=== PATIENT | male | born 1950 | race Caucasian/White ===

== ENCOUNTER 2018-03-21 01:24 | Emergency (ER) | payer OTHER, MEDICAID ==
[~2018-03-21] VITALS: Ht 180.3 cm; Wt 50.0 kg
[2018-03-21 01:48] VITALS: BP 135/77; PULSE 73; RESP 16; TEMP 97.6; O2SAT 96
[2018-03-21] MEDS ORDERED: GABA600T PO (02:25)
--- NOTE | 2018-03-21 02:27 | PD ---
HPI Chief Complaint: Medication Refill Request Time Seen by Provider: 02:15 Travel History International Travel<30 days: No Contact w/Intl Traveler<30days: No Traveled to known affect area: No History of Present Illness HPI This is a 68-year-old male who presents requesting medication refill. He reports that over the past 5 years he has been on gabapentin 600 mg QID. He reports that he ran out 4 days ago. He has had difficulty sleeping over the past 3 days secondary to bilateral leg pain. He reports that he uses gabapentin for chronic bilateral leg pain which she describes as an aching pain , constant, worse at night. Denies any trauma. Denies any other acute medical issues. PFS Past Medical History Medical History: Denies Significant Hx Diminished Hearing: No Medical other: Yes (TB AT AGE 10) ?: Not Past Surgical History Surgical History: No Previous Surgery Social History Alcohol Use: No Tobacco Use: Yes (1 PPD) Substance Use: No Allergies-Medications (Allergen,Severity, Reaction): Coded Allergies: betamethasone (Verified Allergy, Intermediate, INABILITY TO SLEEP, 03/21/18 ) acetaminophen (Verified Adverse Reaction, Intermediate, hyperactivity, ) alprazolam (Verified Adverse Reaction, Intermediate, INABILITY TO SLEEP, ) hydrocodone (Verified Adverse Reaction, Intermediate, hyperactivity, ) Uncoded Allergies: steroids (Adverse Reaction, Intermediate, 03/21/18) "when i have steroids, i can't sleep" Reported Meds & Prescriptions Reported Meds & Active Scripts Active Gabapentin 600 Mg Tab 600 Mg PO QID 30 Days Review of Systems Except as stated in HPI: all other systems reviewed are Neg Physical Exam Narrative GENERAL: Well-nourished male in no acute distress SKIN: Warm and dry. HEAD: Atraumatic. Normocephalic. EYES: Pupils equal and round. No scleral icterus. No injection or drainage. ENT: No nasal bleeding or discharge. Mucous membranes pink and moist. NECK: Trachea midline. No JVD. CARDIOVASCULAR: Regular rate and rhythm. No murmur appreciated. RESPIRATORY: No accessory muscle use. Clear to auscultation. Breath sounds equal bilaterally. GASTROINTESTINAL: Abdomen soft, non-tender, nondistended. Hepatic and splenic margins not palpable. MUSCULOSKELETAL: No obvious deformities. No clubbing. No cyanosis. No edema. 2 + dorsalis pedis and posterior tibial pulses bilaterally. NEUROLOGICAL: Awake and alert. No obvious cranial nerve deficits. Motor grossly within normal limits. Normal speech. Data Data Last Documented VS Vital Signs Date Time Temp Pulse Resp B/P (MAP) Pulse Ox O2 Delivery O2 Flow Rate FiO2 03/21/18 01:48 97.6 73 16 135/77 (96) 96 Orders Orders Gabapentin (Neurontin) (03/21/18 02:30) Ed Discharge Order (03/21/18 02:21) MDM Medical Decision Making Medical Screen Exam Complete: Yes Emergency Medical Condition: Yes Medical Record Reviewed: Yes Differential Diagnosis Peripheral neuropathy, fibromyalgia, restless leg syndrome Narrative Course The patient will be given a refill of his gabapentin. He has an appointment on April 06 with his primary care physician for follow-up. He is stable for discharge. Diagnosis Primary Impression: Medication refill Additional Instructions: Medication as prescribed, follow-up with primary care physician as scheduled. Return for any emergent medical conditions. Med/Other Pt SpecificInfo: Prescription(s) given Scripts Gabapentin (Gabapentin) 600 Mg Tab 600 MG PO QID for 30 Days, TAB 0 Refills Prov: Micah Costa MD 03/21/18 Disposition: 01 DISCHARGE HOME Condition: Stable Aftab Ackerman Mar 21, 2018 02:27
[2018-03-21] MEDS ORDERED: GABAPENTIN 300 MG CAP PO ONE (02:30)
== END 2018-03-21 02:35 | disposition home or self-care (01) ==
LOC: NEPD 01:24
DX: G89.29 Other chronic pain (principal); M79.605 Pain in left leg; M79.604 Pain in right leg; G47.00 Insomnia, unspecified; F17.210 Nicotine dependence, cigarettes, uncomplicated
CPT/HCPCS: 99283